=== PATIENT | female | born 2000 | race Caucasian/White ===

== ENCOUNTER 2018-02-16 20:52 | Emergency (ER) | payer SELFPAY ==
[2018-02-16 21:01] VITALS: BP 108/70; PULSE 84; TEMP 98.1; BMI 17.4
[2018-02-16] MEDS ORDERED: IBUPROFEN 400 MG TABLET (FP) PO ONE (21:05)
[2018-02-16] MEDS ORDERED: KETOROLAC TROMETHAMINE 30 MG/1 ML VIAL IM ONE (21:15)
[2018-02-16] MEDS ORDERED: KETOROLAC TROMETHAMINE 30 MG/1 ML VIAL ONE (21:18)
--- NOTE | 2018-02-16 21:20 | PDOC ---
History of Present Illness - General Chief Complaint: Pain Stated Complaint: PAIN Time Seen by Provider: 02/16/18 21:04 History Source: Patient - History of Present Illness Timing/Duration: reports: other (yesterday) Quality: reports: cramping Past History - Past Medical History Allergies/Adverse Reactions: Allergies Allergy/AdvReac Type Severity Reaction Status Date / Time No Known Allergies Allergy Verified 02/16/18 20:58 Home Medications: Ambulatory Orders Ibuprofen [Motrin -] 2 tab PO Q6H #30 tablet 02/16/18 Ondansetron HCl [Zofran] 4 mg PO Q8H #12 tablet 02/16/18 COPD: No - Immunization History Immunization Up to Date: Yes - Suicide/Smoking/Psychosocial Hx Smoking Status: No Smoking History: Never smoked Number of Cigarettes Smoked Daily: 0 Review of Systems - Review of Systems Constitutional: No: Chills, Fever ABD/GI: Yes: Nausea, Vomiting, Abdominal cramping : No: Dysuria, Discharge *Physical Exam - Vital Signs Last Vital Signs Temp Pulse Resp BP Pulse Ox 98.1 F 84 18 108/70 100 02/16/18 20:59 02/16/18 20:59 02/16/18 20:59 02/16/18 20:59 02/16/18 20:59 - Physical Exam Comments: 02/16/18 21:19 Currently sitting on stretcher and texting on her phone General Appearance: Yes: Appropriately Dressed. No: Apparent Distress HEENT: positive: Normal Voice Respiratory/Chest: negative: Respiratory Distress Gastrointestinal/Abdominal: positive: Soft. negative: Tender Integumentary: positive: Dry, Warm Neurologic: positive: Fully Oriented, Alert, Normal Mood/Affect Medical Decision Making - Medical Decision Making 02/16/18 21:17 17-year-old female, history of dysmenorrhea, currently on menses and here with menstrual cramps consistent with her dysmenorrhea per pt. States he also gets nausea and vomiting during her menses and so cannot usually tolerate over-the- counter medications. No dysuria, fever or chills Pt well appearing and stable with unremarkable exam. Dose of Toradol given in ED, will DC with Motrin and Zofran. Patient to follow-up with [facility] *DC/Admit/Observation/Transfer Diagnosis at time of Disposition: Dysmenorrhea - Discharge Dispostion Disposition: HOME Condition at time of disposition: Good - Prescriptions Prescriptions: Ibuprofen [Motrin -] 2 tab PO Q6H #30 tablet Ondansetron HCl [Zofran] 4 mg PO Q8H #12 tablet - Referrals - Patient Instructions Printed Discharge Instructions: DI for Dysmenorrhea Additional Instructions: Take medications as prescribed and follow-up with your [facility] - Post Discharge Activity Forms/Work/School Notes: Back to Work
== END 2018-02-16 21:33 | disposition home or self-care (01) ==
LOC: JERFT 20:52
PROC: 3E0233Z Introduction of Anti-inflammatory into Muscle, Percutaneous Approach (ICD-10-PCS; principal; 2018-02-16)
DX: N94.6 Dysmenorrhea, unspecified (principal)
CPT/HCPCS: 99281-25